=== PATIENT | female | born 1945 | race Caucasian/White ===

== ENCOUNTER 2018-05-15 12:45 | Inpatient (IN) | payer OTHER ==
[~2018-05-15] VITALS: Ht 160 cm; Wt 104.3 kg
[2018-05-15] MEDS ORDERED: VERAPAMIL ER180 MG PO (15:28)
[2018-05-15] MEDS ORDERED: CATAFLAN PO (15:29)
[2018-05-23] MEDS ORDERED: HYDROCHLOROTHIA25 MG PO (10:30)
[2018-05-23] MEDS ORDERED: AVAPRO300 MG PO (10:30)
[2018-05-24] MEDS ORDERED: XARELTO10 MG PO (14:41)
[2018-05-24] MEDS ORDERED: DUI500 PO (14:41)
[2018-05-24] MEDS ORDERED: PERCOCET 5-3251 EACH PO (14:41)
== END 2018-05-24 17:17 | DRG 470 ==
LOC: SURH 05-22 07:00 → O/R 05-22 07:07 → SURG 05-22 07:07 → SURH 05-22 12:45 → SURG 05-24 17:17
PROVIDERS: Orthopaedic Surgery
PROC: 0QNF0ZZ Release Left Patella, Open Approach (ICD-10-PCS; 2018-05-22)
PROC: 0SRD0J9 Replacement of Left Knee Joint with Synthetic Substitute, Cemented, Open Approach (ICD-10-PCS; principal; 2018-05-22 07:00)
DX: M17.12 Unilateral primary osteoarthritis, left knee (principal); D62 Acute posthemorrhagic anemia; M22.12 Recurrent subluxation of patella, left knee; M81.0 Age-related osteoporosis without current pathological fracture; I10 Essential (primary) hypertension; E66.01 Morbid (severe) obesity due to excess calories; Z96.652 Presence of left artificial knee joint

== ENCOUNTER 2020-04-03 17:51 | Inpatient (IN) | payer OTHER ==
[~2020-04-03] VITALS: Ht 160 cm; Wt 108.9 kg
[~2020-04-03 17:51] MED LIST: AVAPRO300 MG PO; CATAFLAN PO; DUI500 PO; HYDROCHLOROTHIA25 MG PO; PERCOCET 5-3251 EACH PO; VERAPAMIL ER180 MG PO; XARELTO10 MG PO
[2020-04-10] MEDS ORDERED: PLETAL (14:56)
[2020-04-10] MEDS ORDERED: COZAAR25 MG PO (14:56)
[2020-04-10] MEDS ORDERED: VERELAN PM100 MG PO (14:56)
[2020-04-10] MEDS ORDERED: NEURONTIN300 MG PO (14:57)
[2020-04-17] MEDS ORDERED: ELIQUIS2.5 MG PO (08:05)
[2020-04-17] MEDS ORDERED: PERCOCET 5-3251 EACH PO (08:05)
== END 2020-04-17 14:45 | DRG 467 ==
LOC: O/R 04-14 06:10 → SURH 04-14 06:10 → O/R 04-14 09:30 → SURH 04-14 15:17
PROVIDERS: ADMIT Orthopaedic Surgery; ATTEND Orthopaedic Surgery
PROC: 0SNC0ZZ Release Right Knee Joint, Open Approach (ICD-10-PCS; 2020-04-14)
PROC: 30233N1 Transfusion of Nonautologous Red Blood Cells into Peripheral Vein, Percutaneous Approach (ICD-10-PCS; 2020-04-14)
PROC: 0SWC0JZ Revision of Synthetic Substitute in Right Knee Joint, Open Approach (ICD-10-PCS; principal; 2020-04-14 09:30)
DX: T84.032A Mechanical loosening of internal right knee prosthetic joint, initial encounter (principal); M80.00XA Age-related osteoporosis with current pathological fracture, unspecified site, initial encounter for fracture; D62 Acute posthemorrhagic anemia; T84.012A Broken internal right knee prosthesis, initial encounter; M17.11 Unilateral primary osteoarthritis, right knee; M85.461 Solitary bone cyst, right tibia and fibula; M25.661 Stiffness of right knee, not elsewhere classified; E66.01 Morbid (severe) obesity due to excess calories; M23.8X1 Other internal derangements of right knee

== ENCOUNTER 2020-12-29 08:45 | Inpatient (IN) | payer OTHER ==
[~2020-12-29] VITALS: Ht 160 cm; Wt 108.4 kg
[~2020-12-29 08:45] MED LIST changes: +COZAAR25 MG PO; +ELIQUIS2.5 MG PO; +NEURONTIN300 MG PO; +PLETAL; +VERELAN PM100 MG PO
[2020-12-29] MEDS ORDERED: NASAL MIST126 ML (11:24)
[2020-12-29] MEDS ORDERED: COZAAR100 MG PO (11:24)
[2020-12-29] MEDS ORDERED: HORIZANT600 MG PO (11:24)
[2020-12-29] MEDS ORDERED: VERAPAMIL ER180 MG PO (11:25)
[2021-01-05] MEDS ORDERED: DICLOFENAC SOD100 GM (08:16)
[2021-01-05] MEDS ORDERED: GABAPENTIN300 M2 (08:16)
[2021-01-05] MEDS ORDERED: DICLOFENAC POTA50 MG (08:17)
[2021-01-05] MEDS ORDERED: OMEPRAZOLE20 MG (08:17)
[2021-01-05] MEDS ORDERED: HYDROCHLOROTHIA25 MG (08:17)
[2021-01-05] MEDS ORDERED: CILOSTAZOL50 MG (08:17)
[2021-01-06] MEDS ORDERED: ELIQUIS2.5 MG PO (07:17)
[2021-01-06] MEDS ORDERED: CEFADROXIL500 MG PO (07:17)
[2021-01-06] MEDS ORDERED: PERCOCET 5-3251 EACH PO (07:17)
== END 2021-01-06 17:37 | disposition home or self-care (01) | DRG 467 ==
LOC: O/R 01-05 06:28 → SURG 01-05 06:28 → SURH 01-05 07:00 → SURG 01-05 13:32
PROVIDERS: ADMIT Orthopaedic Surgery; ATTEND Orthopaedic Surgery
PROC: 0SWC0JC Revision of Synthetic Substitute in Right Knee Joint, Patellar Surface, Open Approach (ICD-10-PCS; 2021-01-05)
PROC: 0LU Tendons, Supplement (ICD-10-PCS; principal; 2021-01-05 07:00)
DX: S86.811A Strain of other muscle(s) and tendon(s) at lower leg level, right leg, initial encounter (principal); M25.061 Hemarthrosis, right knee; D62 Acute posthemorrhagic anemia; S80.01XA Contusion of right knee, initial encounter; Z96.651 Presence of right artificial knee joint; I10 Essential (primary) hypertension; E66.01 Morbid (severe) obesity due to excess calories